=== PATIENT | female | born 2000 | race African-American/Black ===

== ENCOUNTER 2021-11-08 09:24 | Emergency (ER) | payer OTHER, SELFPAY ==
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
[2021-11-08 09:27] VITALS: BP 130/82; PULSE 120; RESP 16; TEMP 37.3; O2SAT 99
[2021-11-08] MEDS: IBUPROFEN SUSPENSION 200 MG/10 ML UDC 400 MG PO (09:31)
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
[2021-11-08 10:34] VITALS: BP 132/90; PULSE 94; RESP 16; O2SAT 100
== END 2021-11-08 11:13 | disposition home or self-care (01) ==
PROVIDERS: Emergency Provider General Practice
DX: S19.9XXA Unspecified injury of neck, initial encounter (principal); V49.40XA Driver injured in collision with unspecified motor vehicles in traffic accident, initial encounter
CPT/HCPCS: 73000; 99283; A9270

== ENCOUNTER 2023-05-07 14:02 | Emergency (ER) | payer BC, SELFPAY ==
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
--- NOTE | ~2023-05-07 | XR_ITS ---
EXAMINATION: XR ankle RT min 3V INDICATION: Right ankle pain TECHNIQUE: Four views of the right ankle are obtained. COMPARISON: None available FINDINGS: Bone alignment is normal. There is no fracture. There is mild soft tissue swelling of ankle . IMPRESSION: 1. No acute osseous abnormality. 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
[2023-05-07 15:03] VITALS: BP 141/84; PULSE 65; RESP 18; TEMP 36.8; O2SAT 100
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
[2023-05-07] MEDS: CYCLOBENZAPRINE HCL 10 MG TABLET PO (17:43)
[2023-05-07] MEDS: IBUPROFEN 400 MG TABLET 800 MG PO (17:43)
[2023-05-07] MEDS: ACETAMINOPHEN 500 MG TABLET 1000 MG PO (17:44)
[2023-05-07 17:58] VITALS: BP 132/89; PULSE 88; RESP 18; TEMP 36.3; O2SAT 100
== END 2023-05-07 19:33 | disposition home or self-care (01) ==
PROVIDERS: Emergency Provider Physician Assistant
DX: S09.90XA Unspecified injury of head, initial encounter (principal); S90.01XA Contusion of right ankle, initial encounter; W20.8XXA Other cause of strike by thrown, projected or falling object, initial encounter
CPT/HCPCS: 70450; 73610; 99284; A9270

== ENCOUNTER 2023-07-26 10:52 | Emergency (ER) | payer BC, SELFPAY ==
--- NOTE | ~2023-07-26 | XR_ITS ---
EXAMINATION: XR abdomen/kub 1V DATE: 07/26/2023 14:11 INDICATION: Left abdominal pain. Fever. TECHNIQUE: A supine view of the abdomen on 2 radiographs was obtained. COMPARISON: None. FINDINGS: There are no dilated loops of bowel. There is a moderate volume of stool in the colon. Calc ifications in the pelvis are likely phleboliths. IMPRESSION: 1. Nonobstructive bowel gas pattern. Reviewed, dictated and finalized at location A.
[2023-07-26 11:07] VITALS: BP 146/88; PULSE 130; RESP 24; TEMP 39.2; O2SAT 100
[2023-07-26 12:10] LABS: Influenza A QL RT-PCR Negative (Negative); Influenza B QL RT-PCR Negative (Negative); RSV RNA, RT-PCR Negative (Negative); SARS-CoV-2 RNA PCR Negative (Negative)
[2023-07-26 12:26] VITALS: RESP 20; O2SAT 100
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
[2023-07-26] MEDS: KETOROLAC 30 MG/ML VIAL (*BKC) IV PUSH (13:30)
[2023-07-26] MEDS: SODIUM CHLORIDE 0.9% IV 1,000 ML 999 ML IV CONT (13:30)
[2023-07-26 13:35] LABS: Basophils Percent Auto 0.3 % (0.2-1.2); Eosinophils Percent Auto 0.3 % (0-4.4); Hematocrit 42.9 % (37.0-47.0); Hemoglobin 13.3 g/dL (12.0-15.0); Immature Granulocyte Absolute 0.05 K/mm3 (0.00-0.031); Immature Granulocyte Percent A 0.6 % (0-0.5); Lymphocytes Absolute Auto 0.68 K/mm3 (0.9-3.2); Lymphocytes Percent Auto 7.5 % (18.3-44.2); Mean Corpuscular Hemoglobin 26.3 pg (26-34); Mean Corpuscular Volume 84.8 fl (80-100); Monocytes Absolute Auto 1.3 K/mm3 (0.1-0.6); Monocytes Percent Auto 14.8 % (2.6-8.5); Neutrophils Absolute Auto 6.9 K/mm3 (1.3-6.7); Neutrophils Percent Auto 76.5 % (45.5-73.1); Platelet Count Result 173 k/mm3 (150-375); Red Blood Count 5.06 M/mm3 (4.2-5.4); Red Cell Distribution Width 14.7 % (11.5-14.5); White Blood Count 9.1 K/mm3 (4.5-10.0)
[2023-07-26 13:41] LABS: Appearance Urine Clear (Clear); Bacteria Urine 1+ /hpf; Bilirubin Urine Negative (Negative); Blood Urine Negative (Negative); Color Urine Yellow (Yellow); Glucose Urine UA Negative (Negative); Ketones Urine Trace mg/dL (Negative); Leukocyte Esterase Ur 1+ LEU/UL (Negative); Nitrate Urine Negative (Negative); Non Pathogenic Casts 0-2; Protein Urine Negative (Negative); RBC Urine 0-2 /hpf (0-2); Specific Grav Ur 1.022 (1.001-1.035); Squamous Epithelial Cell Urine Few /hpf (Few); Urobilinogen Urine 0.2 mg/dL (<2.0); pH Urine 7.5 (5.0-9.0)
[2023-07-26 13:48] LABS: Alanine Aminotransferase 21 U/L (6-35); Alkaline Phosphatase 83 U/L (38-126); Anion Gap 8 mmol/L (4-12); Aspartate Amino Transferase 26 U/L (14-36); Bilirubin,Total 0.4 mg/dL (0.2-1.3); Blood Urea Nitrogen 9 mg/dL (7-17); Calcium 9.6 mg/dL (8.4-10.2); Carbon Dioxide 25 mmol/L (22-30); Chloride 101 mmol/L (98-107); Estimated CRCL calculation 126 ml/min; Estimated Glomerular Filt Rate > 60; Glucose 92 mg/dL (65-110); Potassium 3.7 mmol/L (3.4-5.0); Sodium 134 mmol/L (137-145)
[2023-07-26 13:51] LABS: Add Urine Microscopic? YES
[2023-07-26 14:30] VITALS: BP 132/83; PULSE 111; RESP 18; TEMP 37.4; O2SAT 100
== END 2023-07-26 14:45 | disposition home or self-care (01) ==
PROVIDERS: Emergency Medicine; Emergency Provider Emergency Medicine
DX: B34.9 Viral infection, unspecified (principal); Z20.822 Contact with and (suspected) exposure to COVID-19
CPT/HCPCS: 36415; 74018; 80053; 81001; 85025; 87086; 87637; 96361; 96374; 99284; J1885; J7030